=== PATIENT | female | born 2005 | race Caucasian/White ===

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

== ENCOUNTER 2023-06-03 15:41 | Outpatient (REF) | payer MEDICAID, SELFPAY | END 2023-06-03 15:42 | disposition home or self-care (01) | LOC: NCHCN 15:41 | PROVIDERS: PCP Nurse Practitioner Family; Visit Provider Physician Assistant Medical | DX: J02.9 Acute pharyngitis, unspecified (principal) | CPT/HCPCS: 87070 ==

== ENCOUNTER 2025-03-10 10:45 | Emergency (ER) | payer OTHER, SELFPAY ==
[2025-03-10 10:46] VITALS: BP 139/97; PULSE 88; RESP 16; TEMP 36.4; O2SAT 98
[2025-03-10 10:49] VITALS: BP 139/97; PULSE 88; RESP 16; TEMP 36.4; O2SAT 98
--- NOTE | 2025-03-10 10:53 | ED.GENADUL_ITS ---
Discharge Plan Disposition Patient Disposition: Home Condition: Stable Discharge Details Clinical Impression: Dog bite of skin of lip Primary Care Provider: Unknown,Unknown ED Provider: Trevor Singletary Home Meds and New Rx's Prescriptions: New amoxicillin-pot clavulanate 875-125 mg tablet 1 tab PO BID 10 Days Qty: 20 0RF Discharge Instructions Instructions: Amoxicillin and Clavulanate, Animal Bites ED, Tdap (Tetanus, Diphtheria, Pertussis) Vaccine CDC Vaccine Information Statement (VIS) Additional Instructions: You were seen in the emergency department for your puncture wound of the left lower lip, treating this with antibiotics called Augmentin twice per day which were sent to your pharmacy in [place]. Please keep the wound clean. We did place 1 suture as the puncture did cross the adamaris border, which can help to close cosmetically- this suture will need to be removed in 7-10 days. Please return for any signs of infection. Discharge Data Discharge Date/Time-TO BE ENTERED AT DEPARTURE: 03/10/25 12:37 HPI General Date/Time Provider Initiated Documentation: 03/10/25 10:53 . 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 Quality described as tiny puncture to the left lower lip, no radiation to active bleeding, the dog is up-to-date on shots, patient is unsure of her tetanus, denies fever or discharge, denies through and through puncture. Severity is described as mild. Palliating factors include nothing specific attempted besides cleaning it. Provoking factors include nothing specific. Patient not anticoagulated. Related Data Home Medications ?Medication ?Instructions ?Recorded ?Confirmed amoxicillin 875 mg-potassium 1 tab PO BID 10 days #20 tabs 03/10/25 clavulanate 125 mg tablet Previous Rx's ?Medication ?Instructions ?Recorded amoxicillin 875 mg-potassium 1 tab PO BID 10 days #20 tabs 03/10/25 clavulanate 125 mg tablet Allergies Allergy/AdvReac Type Severity Reaction Status Date / Time No Known Allergies Allergy Verified 03/10/25 10:49 General Stated Complaint: AnimalBite BEV: 4 Review of Systems All systems reviewed & are unremarkable except as noted in HPI and below Exam Narrative Exam Narrative: GENERAL APPEARANCE: Well-nourished, non-toxic, awake and alert, atraumatic, no acute distress. SKIN: Warm, pink, dry, 0.3 cm puncture laceration across the vermilion border on the left lower lip, no active bleeding, no through and through puncture HEAD: Normocephalic, atraumatic, normal hair distribution for gender/age. EYES: Normal conjunctiva, no exudates on lids/lashes. ENT: Nares patent, no circumoral cyanosis, no facial swelling NECK: Supple, trachea midline, painless cervical ROM. LUNGS/CHEST: Non-labored respirations, normal A/P diameter, symmetrical expansion, no chest wall deformity HEART (CV/PV): No peripheral edema, no JVD. ABDOMEN: Soft, non-distended, no guarding. MSK: Normal ROM, no swelling/deformity to bilateral UEs or LEs, moving all extremities without weakness, no cyanosis, spine midline without tenderness, normal curvature. NEURO: Mental Status AAOx4 - alert to person, place, time, events No facial droop, no forehead involvement. Motor: No focal weakness Sensory: sensation intact to light touch globally. Gait normal: patient ambulated without ataxia into ED room. PSYCH: euthymic, cooperative, pleasant, appropriate speech Course Vital Signs Vital signs: Vital Signs Temperature 36.4 C 03/10/25 10:46 Pulse 88 03/10/25 10:46 Respiratory Rate 16 03/10/25 10:46 Blood Pressure 139/97 H 03/10/25 10:46 Pulse Oximetry 98 03/10/25 10:46 Temperature 36.4 C 03/10/25 10:49 Pulse 88 03/10/25 10:49 Respiratory Rate 16 03/10/25 10:49 Blood Pressure 139/97 H 03/10/25 10:49 Pulse Oximetry 98 03/10/25 10:49 Pain Level 4 03/10/25 10:49 Procedure Laceration Laceration 1: Provider that performed the procedure: Trevor Singletary Patient Consented: Verbally Site: lip Side (If applicable): left Description: linear and involves adamaris border Depth: simple, single layer Local anesthetic: LET(lidocaine epinephrine tetracaine) Amount of anesthesia used (mL): 3 Suture size: 6-0 Number of sutures:: 1 Technique: simple, interrupted Complications: None Medical Decision Making This dictation utilizes [id number] dictation software and may contain unedited grammatical errors. 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 Quality described as tiny puncture to the left lower lip, no radiation to active bleeding, the dog is up-to-date on shots, patient is unsure of her tetanus, denies fever or discharge, denies through and through puncture. Severity is described as mild. Palliating factors include nothing specific attempted besides cleaning it. Provoking factors include nothing specific. Patients' medical history: Noncontributory. Family and social history: Noncontributory. Pertinent exam findings / vital signs include 0.3 cm puncture laceration across the vermilion border on the left lower lip, no active bleeding, no through and through puncture. Differential / pathologies of concern include puncture wound. Diagnostic studies of: -None. Interventions of: -Let gel applied for topical anesthetic, Tdap updated, started on Augmentin, did place 1 suture to align the vermilion border. 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 Findings not consistent with through and through puncture, grossly contaminated wound. Disposition of dog bite of skin of lip. Patient verbalized understanding of the plan and return to ED criteria and engaged in shared decision making. Medical Records Medical records reviewed: Yes I reviewed the patient's medical records. [facility] All Active Problems (Updated 03/10/25 @ 11:17 by MISHEL Callejas) Dog bite of skin of lip (Acute) Panic attack (Acute) Anxiety (Chronic) Contraception (Acute) Ankle impingement syndrome, right (Acute) Tonsillar tag (Chronic 01/06/14) Right Tonsil Routine child health exam (Chronic 01/06/14) Normal weight, pediatric, BMI 5th to 84th percentile for age (Chronic 05/02/15) Medical History Chronic otitis media (11/20/14) Displaced fracture of proximal phalanx of left little finger (~02/2018) Salter Arnold II. Closed reduction and raul taping. Pubertal delay [place] [facility] [place]. Also with Family history of the same. Bone age is 10 years. Short stature (child) (05/14/16) Followed by [facility] [place] Last seen 06/2017. Last bone age 10 years. Final height predicted to be 160.8 cm or 64 inches, which is within 2 standard deviations. Accessory navicular bone of both feet Likely UTI (urinary tract infection) normal US and [facility] Surgical History Accessory navicular bone of both feet (05/14/16) Ortho eval 08/01. S/p removal Family History Mother No problems noted. Father No problems noted. Grandparent Neoplasm Social History Smoking/Tobacco Use Status: Never Smoking risk assessment performed?: Yes Drug use: Never Education Level: other Details: GAP year Pets and animals: Yes Pets and animals: cat(s) and dog(s) Current gender identity: female Seatbelt use: always Fire extinguisher in home: Yes Carbon monox detector in home: Yes Firearms in home: Yes Firearms unloaded and locked: Yes Do you feel safe in your relationship?: Yes Female Reproductive History Menstrual control method: patch and condoms History History 0 Para Hx # Term Pregnancies Multiple births Hx # Pregnancies Ectopic pregnancies AB induced Hx Number of Living Children AB spontaneous
[2025-03-10] MEDS: Lidocaine/Epinephri/Tetracaine Topical Gel 3 ML TP (11:46)
[2025-03-10] MEDS: Diph,Pertuss(Acell),Tet Vac/Pf 0.5 ML SYR IM (11:46)
[2025-03-10] MEDS: Amoxicillin 875/Clav. 125 TAB PO (11:46)
== END 2025-03-10 12:37 | disposition home or self-care (01) ==
PROVIDERS: Emergency Provider Physician Assistant
DX: S01.551A Open bite of lip, initial encounter (principal); W54.0XXA Bitten by dog, initial encounter; Y99.0 Civilian activity done for income or pay; Z23 Encounter for immunization
CPT/HCPCS: 12011; 90471; 90715; 99284; 99283